=== PATIENT | male | born 1950 | race Caucasian/White ===

== ENCOUNTER 2024-10-03 11:03 | Emergency (ER) | payer OTHER, SELFPAY ==
[2024-10-03 11:03] VITALS: BMI 30.8
[2024-10-03 11:05] VITALS: BP 145/79
--- NOTE | 2024-10-03 11:28 | ED.MUSCINJ ---
HPI-Injury
General
Chief Complaint: Musculo-Skeletal Complaint
Source: patient
Exam Limitations: none
Time Seen by Provider: 10/03/24 11:08
History of Present Illness-Injury
Initial Injury comments:
74-year-old male presents complaining low back pain that radiates down the left buttock into the anterior left thigh. This has been progressively getting worse over the past 5 days. No bowel or bladder dysfunction. No perianal anesthesia. No
fever. No known injury. Ibuprofen is not helping his discomfort. He drove himself here. He has been ambulatory. No other complaints at this time
Past History
Past History
ED Past Medical History: GERD, Hypercholesterolemia, Other (Kidney stones, diverticulitis) and Other (chronic back pain)
ED Past Surgical History: Other (Pituitary tumor removal)
Social History
Tobacco: Former smoker
Alcohol: None
Drug: None
Personal:
Living: with family
Employment: Retired
Phy Exam
Physical Exam
Physical Exam:
General: Well-appearing male no acute respiratory distress
Musculoskeletal exam: Patient is tender over the left lumbar sacral. No deformities to the lower extremities good range of motion to the lower extremities
Neurologic: Alert ambulatory positive straight leg raise left lower extremity reproducing pain to the anterior distal left thigh. He has good strength and sensation to the lower extremities bilaterally
Vascular: 2+ dorsalis pedis pulse bilateral feet
Skin is warm no rash
Injury Course
Orders/Labs/Results
Orders:
Orders
10/03/24 11:26
Ketorolac [Toradol] 30 mg IM NOW STA
CR Lumbar Spine 2 Or 3 Views Urgent
Comment:
Reason For Exam: back pain
MDM/Problems Addressed
Differential Diagnosis Includes:
Low back pain with left leg pain. Suspect radiculopathy. No red flags to suggest cauda equina. No fever to suggest infectious source. [id number] medications are not helping. Will treat symptoms. He is due to see his spine team later this
week. He can follow-up with them for steroid injection. No indication for emergent MRI at this time
*Critical Care Note
Total Time (30-74mins, 75-104mins- exclusive of procedures): Not Applicable
Update Note
Update Note:
X-ray shows degenerative changes throughout but no significant acute finding otherwise. I suspect radiculopathy. Will prescribe prednisone for him to take at home as well as a muscle relaxer. Stable for discharge
ED Attending Note
-
Portions of this chart may have been created with voice recognition software.� Occasional wrong word or��sound alike� substitutions may have occurred due to the inherent limitations of voice recognition software.
Discharge Plan
Departure
Patient Disposition: Home (Routine Discharge)
Date of Disposition: 10/03/24
Time of Disposition: 12:45
Patient with high blood pressure during this ER visit?: No
Discharge Problem:
Acute lumbar radiculopathy
Instructions: Radiculopathy (DC)
Prescriptions:
New
prednisone 10 mg Tablet
See Rx Instructions .ROUTE .COMPLEX Qty: 30 0RF
Rx Instructions:
Take By Mouth:
40 mg daily x3 days, 30 mg daily x3 days,
20 mg daily x3 days, 10 mg daily x3 days.
methocarbamol 500 mg tablet
500 mg PO TID PRN (Reason: spasm) Qty: 14 0RF
No Action
multivitamin [One Daily Multivitamin] 1 EACH tablet
1 tab PO DAILY
omeprazole 40 MG capsule,delayed release(DR/EC)
20 mg PO DAILY
pravastatin 80 MG tablet
80 mg PO DAILY
ascorbic acid (vitamin C) [Vitamin C] 1,000 MG tablet
1,000 mg PO DAILY
melatonin 3 MG tablet
6 mg PO HS
oxycodone-acetaminophen 5 MG/325 MG tablet
1 tab PO Q4HPRN PRN (Reason: pain) Qty: 17 0RF
tamsulosin 0.4 MG capsule
0.4 mg PO DAILY Qty: 7 0RF
ibuprofen 600 MG tablet
600 mg PO DAILY
cholecalciferol (vitamin D3) [Vitamin D3] 2,000 UNIT capsule
4 tab PO DAILY
hydrocortisone [Cortef] 5 MG tablet
15 mg PO DAILY
Patient Comments:
10 mg in am and 5 in pm
Testosterone
100 mg IM .Q14 DAYS
prednisone 50 MG tablet
50 mg PO DAILY Qty: 3 0RF
Referrals:
Nery Chacon CRNP [Family Provider] -
Activity Restrictions/Additional Instructions:
Use muscle relaxers as needed for spasm. Use prednisone as directed. Continue to follow-up with your back specialist. Return if needed otherwise
Interventions
Interventions:
*Risk Screen - Suicide Last Done: 10/03/24 11:05
*General Assessment Last Done: 10/03/24 11:05
*Neglect/Abuse Screening Last Done: 10/03/24 11:05
ED- Fall Risk Assessment Last Done: 10/03/24 11:08
*ED COVID-19 Vaccine History Last Done: 10/03/24 11:08
ED-Musculoskeletal Assessment Last Done: 10/03/24 11:08
Discharge Date and Time
Print Language: MALAWIAN
[2024-10-03] MEDS: TORADOL 30 MG IM (11:37)
[2024-10-03 13:00] VITALS: BP 142/73
== END 2024-10-03 13:27 | disposition home or self-care (01) ==
LOC: EMR 11:03
PROVIDERS: EMERGENCY PHYSICIAN Emergency Medicine; FAMILY PHYSICIAN Nurse Practitioner Adult Health
DX: M51.16 Intervertebral disc disorders with radiculopathy, lumbar region (principal); K21.9 Gastro-esophageal reflux disease without esophagitis; E78.00 Pure hypercholesterolemia, unspecified; Z87.442 Personal history of urinary calculi; Z87.891 Personal history of nicotine dependence
CPT/HCPCS: 99283; 96372; 72100

== ENCOUNTER → 2025-01-16 17:14 | Outpatient (REF) | payer OTHER, SELFPAY | LOC: RCS 17:14 | PROVIDERS: ATTENDING PHYSICIAN Nurse Practitioner Adult Health | DX: I34.9 Nonrheumatic mitral valve disorder, unspecified (principal) | CPT/HCPCS: 93306 ==

== ENCOUNTER → 2025-01-31 12:49 | Outpatient (REF) | payer OTHER, SELFPAY | LOC: HWRAD 12:49 | PROVIDERS: ATTENDING PHYSICIAN Nurse Practitioner Adult Health; FAMILY PHYSICIAN Nurse Practitioner Adult Health | DX: R91.1 Solitary pulmonary nodule (principal) | CPT/HCPCS: 71250 ==